=== PATIENT | male | born 1935 | race Caucasian/White ===

== ENCOUNTER 2016-11-15 03:46 | Inpatient (IN) | payer MEDICARE, OTHER ==
[2016-11-15] MEDS ORDERED: Adacel Vial IM ONE ×2 (03:53→04:37)
[2016-11-15] MEDS ORDERED: BACIGUENT PACKET TP ONE (03:53)
[2016-11-15] MEDS ORDERED: XYLOCAINE 2% Uro-Jet ONE (04:09)
[2016-11-15 04:20] LABS: BASOPHIL % 0.4 % (0.0-0.4); Eosinophil % 2.7 % (0.00-5.0); Granulocytes % 62.3 % (36.0-66.0); Lymphocytes % 27.4 % (24.0-44.0); Mean Cell Volume 92.2 fl (78-100); Mean Corpuscular Hemoglobin 29.7 pg (26-32); Mean Platelet Volume 12.2 fl (6-9.5); Monocytes % 7.2 % (0.0-12.0); Platelet Count 182 K/mm3 (150-450); Red Blood Count 4.35 M/mm3 (4.1-5.6); Red Cell Distribution Width 13.8 % (11.5-14.0); White Blood Count 10.6 K/mm3 (4.0-10.5)
[2016-11-15] MEDS: Sodium Chloride 0.9% 1000 ML 1,000 ML IV SCH ×2 (04:25→15:24)
[2016-11-15] MEDS ORDERED: XYLOCAINE 2% Uro-Jet TOP ONE (04:26)
[2016-11-15 04:30] LABS: INR 1.13 (0.8-3.0); PROTIME 12.6 SECONDS (8.83-12.87)
[2016-11-15] MEDS ORDERED: SUBLIMAZE 100 MCG/2 ML IV ONE ×2 (04:31→05:20)
[2016-11-15 04:33] LABS: PTT 30.7 SECONDS (24.1-36.1)
[2016-11-15 04:36] LABS: Collection Type CATH
[2016-11-15] MEDS ORDERED: SUBLIMAZE 100 MCG/2 ML ONE ×2 (04:36→05:22)
[2016-11-15 04:37] LABS: COMPLETE URINE MICROSCOPIC? NO
--- NOTE | 2016-11-15 04:37 | ERPHSYRPT ---
- History of Present Illness Time Seen by Provider: 11/15/16 03:51 Source: patient, family, EMS Patient Subjective Stated Complaint: alert per neighbor that pt was sleep- walking outside for unknown amount of time - pt lacking adequate clothing - recent history of stroke with pacemaker placement as well - pt with fall et multiple abrasions of the extremities Triage Nursing Assessment: lifted to cart per EMS personnel - moves all extremities with equal strength. alert/oriented to self and place - pupils MARY : 4mm. skin flushed/cold - multiple abrasions of the extremities with dried, embedded grass. resps spontaneous - easy - non-labored Physician History: CC: cold exposed Hx: 81 y/o patient of Dr Loyola with hx of DM, heart disease, pacemaker last week. He has hx of polysomnias and has been following with neurology. They have door alarms as he has gone outside sleepwalking. Rhoda the neighbor found him banging on their door. He had walked outside and gone several houses down. He initially was on a walker but it was abandoned part of the way. He was in a t shirt and depends garment. He was cold. He has scratches all over him. EMS was called. Glc was not low. He was placed in warm blankets and brought to the hospital. Pt did not remember the events but arrived lucid. He complains of cold feet and some pain in the feet. Unsure last tetanus vaccine. Timing/Duration: today Severity: moderate, severe Allergies/Adverse Reactions: morphine Allergy (Verified 06/11/16 12:42) Home Medications: Acetaminophen 325 mg [Tylenol 325 mg] 650 mg PO Q8HPRN PRN 11/15/16 [ History] Amlodipine Besylate 5 mg [Norvasc 5 mg] 5 mg PO DAILY 11/15/16 [History] Apixaban [Eliquis] 5 mg PO HS 11/15/16 [History] Aspirin 81 mg PO DAILY 11/15/16 [History] Cholecalciferol (Vitamin D3) [Vitamin D3] 2,000 unit PO DAILY 11/15/16 [History] Clonazepam 0.5 mg [Klonopin 0.5 MG] 0.5 mg PO HS 11/15/16 [History] Fenofibrate Nanocrystallized [Fenofibrate] 145 mg PO DAILY 11/15/16 [History] Furosemide 40 mg [Lasix 40 MG] 40 mg PO DAILY 11/15/16 [History] Gabapentin 300 mg PO HS 11/15/16 [History] Glimepiride 1 mg PO DAILY 11/15/16 [History] Meclizine HCl 25 mg [Antivert 25 mg] 25 mg PO BID 11/15/16 [History] Memantine HCl [Namenda Xr] 28 mg PO HS 11/15/16 [History] Metoprolol Tartrate 50 mg PO DAILY 11/15/16 [History] Olmesartan Medoxomil [Benicar] 40 mg PO DAILY 11/15/16 [History] Rosuvastatin Calcium [Crestor] 20 mg PO DAILY 11/15/16 [History] Sitagliptin Phosphate 50 MG [Januvia 50 MG] 50 mg PO DAILY 11/15/16 [ History] Hx Tetanus, Diphtheria Vaccination/Date Given: No Hx Influenza Vaccination/Date Given: No Hx Pneumococcal Vaccination/Date Given: No Immunizations Up to Date: Yes - Review of Systems Constitutional: No Symptoms Eyes: No Symptoms Respiratory: No Cough, No Dyspnea Cardiac: No Chest Pain Abdominal/Gastrointestinal: No Abdominal Pain, No Nausea, No Vomiting Genitourinary Symptoms: No Symptoms Musculoskeletal: Fall (?), Injury (scratches and frsotbite]), No Back Pain, No Neck Pain Skin: Skin Lesions Neurological: No Focal Weakness, No Headache All Other Systems: Reviewed and Negative - Past Medical History Pertinent Past Medical History: Yes Neurological History: Peripheral Neuropathy, Stroke ENT History: Cataracts Cardiac History: Coronary Artery Disease, Hypertension, Myocardial Infarction ( [place]) Respiratory History: COPD Endocrine Medical History: Diabetes Type II Musculoskeletal History: Osteoarthritis GI Medical History: Hernia History: No Pertinent History Psycho-Social History: No Pertinent History Male Reproductive Disorders: Prostate Cancer Other Medical History: BLACK LUNG USES O2 AT NIGHT VIA CPAP; SLEEP APNEA; CABG X 3 2004; PROSTATE CA 1999; CHOLECYSTECTOMY; Stroke; Polysomnia - Past Surgical History Past Surgical History: Yes Neuro Surgical History: No Pertinent History Cardiac: CABG, Cardiac Catheterization, Cardiac Stent, Pacemaker Respiratory: No Pertinent History Gastrointestinal: Cholecystectomy Genitourinary: No Pertinent History Musculoskeletal: Joint Replacement Male Surgical History: No Pertinent History - Social History How long have you smoked: 41 Exposure to second hand smoke: No Drug Use: none Patient Lives Alone: No (lives at home with ) - Nursing Vital Signs Nursing Vital Signs: Initial Vital Signs Temperature 97.4 F Temperature Source Core Pulse Rate 78 Respiratory Rate 12 Blood Pressure 113/69 Pain Intensity 7 - Physical Exam General Appearance: alert Eye Exam: PERRL/EOMI Ears, Nose, Throat Exam: moist mucous membranes Neck Exam: non-tender, supple Respiratory Exam: lungs clear Cardiovascular Exam: irregular Gastrointestinal/Abdomen Exam: soft, No tenderness, No distention Male Genitalia Exam: normal genitalia Extremity Exam: normal range of motion, other (abrasions on all extremities. Both feet are cold and have dusky discoloration and appear to have frostbite.) Neurologic Exam: alert, oriented x 3, cooperative, No motor deficits SpO2 Interpretation: normal SpO2: 97 Oxygen Delivery: Room Air - Course Nursing assessment & vital signs reviewed: Yes EKG Interpreted by Me: RATE (61 pacemaker with underlying atrial flutter) - Radiology Exams cxr X-ray Interpretation: Reviewed by me (aging chest), No Fracture, No Pneumothorax , Non-displaced Fracture pelvis X-ray Interpretation: Reviewed by me, Negative, No Fracture Ordered Tests: Active Orders 24 hr Category Date Time Status ACCUCHECK [Accucheck] STAT Care 11/15/16 05:07 Completed Cath [Catheter-Tracy Rollins] STAT Care 11/15/16 04:23 Active Clean Catch Urine Specimen STAT Care 11/15/16 03:51 Active EKG-ER Only STAT Care 11/15/16 03:51 Active IV Insertion STAT Care 11/15/16 03:51 Active Wound Care STAT Care 11/15/16 03:53 Active CHEST 1 VIEW (PORTABLE) Stat Exams 11/15/16 03:52 Taken KNEE (1 OR 2 VIEW) Stat Exams 11/15/16 05:56 Ordered PELVIS (1 OR 2 VIEWS) Stat Exams 11/15/16 03:54 Taken CBC W DIFF Stat Lab 11/15/16 04:05 Completed CK-Creatinine Phosphokinase Stat Lab 11/15/16 04:05 Completed CMP Stat Lab 11/15/16 04:05 Completed Lactic Acid Urgent Lab 11/15/16 03:51 Completed PROTIME WITH INR Stat Lab 11/15/16 04:05 Completed PTT Stat Lab 11/15/16 04:05 Completed TROPONIN Q3H Lab 11/15/16 04:05 Completed TROPONIN Q3H Lab 11/15/16 07:00 Ordered TROPONIN Q3H Lab 11/15/16 10:00 Ordered TROPONIN Q3H Lab 11/15/16 13:00 Ordered TROPONIN Q3H Lab 11/15/16 16:00 Ordered UA Stat Lab 11/15/16 04:25 Completed Medication Summary Generic Name Dose Route Start Last Admin Trade Name Freq PRN Reason Stop Dose Admin Sodium Chloride 1,000 mls @ 100 mls/hr 11/15/16 04:00 11/15/16 04:25 Sodium Chloride 0.9% 1000 Ml IV 12/15/16 03:59 100 mls/hr .Q10H HILARY Administration Discontinued Medications Generic Name Dose Route Start Last Admin Trade Name Freq PRN Reason Stop Dose Admin Bacitracin 0.9 gm 11/15/16 03:53 Baciguent Packet TP 11/15/16 03:54 STAT ONE Bacitracin Confirm 11/15/16 05:37 Baciguent Packet Administered 11/15/16 05:38 Dose 7 gm .ROUTE .STK-MED ONE Diphtheria/Tetanus/Acell Pertussis 0.5 ml 11/15/16 03:53 11/15/16 04:40 Adacel Vial IM 11/15/16 03:54 0.5 ml .ONCE ONE Administration Diphtheria/Tetanus/Acell Pertussis Confirm 11/15/16 04:37 Adacel Vial Administered 11/15/16 04:38 Dose 0.5 ml IM .STK-MED ONE Fentanyl Citrate 25 mcg 11/15/16 04:31 11/15/16 04:39 Sublimaze 100 Mcg/2 Ml IV 11/15/16 04:32 25 mcg STAT ONE Administration Fentanyl Citrate Confirm 11/15/16 04:36 Sublimaze 100 Mcg/2 Ml Administered 11/15/16 04:37 Dose 100 mcg .ROUTE .STK-MED ONE Fentanyl Citrate 50 mcg 11/15/16 05:20 11/15/16 05:27 Sublimaze 100 Mcg/2 Ml IV 11/15/16 05:21 50 mcg STAT ONE Administration Fentanyl Citrate Confirm 11/15/16 05:22 Sublimaze 100 Mcg/2 Ml Administered 11/15/16 05:23 Dose 100 mcg .ROUTE .STK-MED ONE Lidocaine HCl Confirm 11/15/16 04:09 Xylocaine 2% Uro-Jet Administered 11/15/16 04:10 Dose 200 mg .ROUTE .STK-MED ONE Lidocaine HCl 200 mg 11/15/16 04:26 11/15/16 04:28 Xylocaine 2% Uro-Jet TOP 11/15/16 04:27 200 mg STAT ONE Administration Lab/Rad Data: Laboratory Result Diagrams 11/15/16 04:05 11/15/16 04:05 Laboratory Results 11/15/16 11/15/16 11/15/16 Range/Units 04:25 04:05 04:05 WBC (4.0-10.5) K/mm3 RBC (4.1-5.6) M/mm3 Hgb (12.5-18.0) gm/dl Hct (42-50) % MCV (78-100) fl MCH (26-32) pg MCHC (32-36) g/dl RDW (11.5-14.0) % Plt Count (150-450) K/mm3 MPV (6-9.5) fl Gran % (36.0-66.0) % Lymphocytes % (24.0-44.0) % Monocytes % (0.0-12.0) % Eosinophils % (0.00-5.0) % Basophils % (0.0-0.4) % Basophils # (0-0.4) INR 1.13 (0.8-3.0) PTT 30.7 (24.1-36.1) SECONDS Sodium (136-145) mEq/L Potassium (3.5-5.1) mEq/L Chloride (98-107) mEq/L Carbon Dioxide (21-32) mEq/L Anion Gap (5-15) MEQ/L BUN (9-20) mg/dL Creatinine (0.55-1.30) mg/dl Estimated GFR ML/MIN Glucose (70-110) MG/DL Lactic Acid (0.4-2.0) Calcium (8.5-10.1) mg/dL Total Bilirubin (0.2-1.0) mg/dL AST (15-37) U/L ALT (12-78) U/L Alkaline Phosphatase (46-116) U/L Creatine Kinase (39-308) U/L Troponin I < 0.017 (0.000-0.056) ng/ml Serum Total Protein (6.4-8.2) gm/dL Albumin (3.4-5.0) g/dL Ur Collection Type CATH Urine Color YELLOW (YELLOW) Urine Appearance CLEAR (CLEAR) Urine pH 6.0 (5-6) Ur Specific [place] 1.015 (1.005-1.025) Urine Protein NEGATIVE (Negative) Urine Glucose (UA) >=1000 (NEGATIVE) mg/dL Urine Ketones NEGATIVE (NEGATIVE) Urine Nitrite NEGATIVE (NEGATIVE) Urine Bilirubin NEGATIVE (NEGATIVE) Urine Urobilinogen 0.2 (0-1) mg/dL Urine WBC (Auto) NEGATIVE (NEGATIVE) Urine RBC (Auto) NEGATIVE (0-5) Andres/ul Specimen Received 11/15/16:0430 11/15/16 11/15/16 11/15/16 Range/Units 04:05 04:05 03:51 WBC 10.6 H (4.0-10.5) K/mm3 RBC 4.35 (4.1-5.6) M/mm3 Hgb 12.9 (12.5-18.0) gm/dl Hct 40.1 L (42-50) % MCV 92.2 (78-100) fl MCH 29.7 (26-32) pg MCHC 32.2 (32-36) g/dl RDW 13.8 (11.5-14.0) % Plt Count 182 (150-450) K/mm3 MPV 12.2 H (6-9.5) fl Gran % 62.3 (36.0-66.0) % Lymphocytes % 27.4 (24.0-44.0) % Monocytes % 7.2 (0.0-12.0) % Eosinophils % 2.7 (0.00-5.0) % Basophils % 0.4 (0.0-0.4) % Basophils # 0.04 (0-0.4) INR (0.8-3.0) PTT (24.1-36.1) SECONDS Sodium 141 (136-145) mEq/L Potassium 4.4 (3.5-5.1) mEq/L Chloride 106 (98-107) mEq/L Carbon Dioxide 25.5 (21-32) mEq/L Anion Gap 13.9 (5-15) MEQ/L BUN 27 H (9-20) mg/dL Creatinine 1.76 H (0.55-1.30) mg/dl Estimated GFR 40 ML/MIN Glucose 196 H (70-110) MG/DL Lactic Acid 2.3 H (0.4-2.0) Calcium 8.9 (8.5-10.1) mg/dL Total Bilirubin 0.4 (0.2-1.0) mg/dL AST 43 H (15-37) U/L ALT 36 (12-78) U/L Alkaline Phosphatase 54 (46-116) U/L Creatine Kinase 150 (39-308) U/L Troponin I (0.000-0.056) ng/ml Serum Total Protein 7.4 (6.4-8.2) gm/dL Albumin 3.8 (3.4-5.0) g/dL Ur Collection Type Urine Color (YELLOW) Urine Appearance (CLEAR) Urine pH (5-6) Ur Specific [place] (1.005-1.025) Urine Protein (Negative) Urine Glucose (UA) (NEGATIVE) mg/dL Urine Ketones (NEGATIVE) Urine Nitrite (NEGATIVE) Urine Bilirubin (NEGATIVE) Urine Urobilinogen (0-1) mg/dL Urine WBC (Auto) (NEGATIVE) Urine RBC (Auto) (0-5) Andres/ul Specimen Received - Progress Progress Note: 11/15/16 04:41 The patient was exposed and placed on warm blankets and bear hugger. Rectal temp 95.4 initially. Pulse ox 95% RA. He is alert and lucid. He appears to have superficial abrasions and frostbite of the feet. Warmed IVF initiated. Tetanus updated. Family apprised of condition. He will need admission for rewarming and treatment of frostbite. Discussed with : Daily Gee Will see patient in: hospital (observation) Counseled pt/family regarding: lab results, diagnosis, need for follow-up, rad results - Departure Time of Disposition: 06:06 Departure Disposition: Observation Clinical Impression: Frostbite of both feet, Abrasions of multiple sites, Parasomnia, organic Hypothermia, initial encounter Qualifiers: Encounter type: initial encounter Qualified Code(s): T68.XXXA - Hypothermia, initial encounter Exposure to environmental cold Qualifiers: Encounter type: initial encounter Qualified Code(s): T69.9XXA - Effect of reduced temperature, unspecified, initial encounter Type 2 diabetes mellitus Qualifiers: Diabetes mellitus complication status: with circulatory complication Diabetes mellitus complication detail: with other circulatory complications Condition: Fair Critical Care Time: Yes Critical Care Time(excluding separately billable procedures): 30-74 minutes Referrals: CATRACHO LOYOLA MD [Primary Care Provider] -
[2016-11-15 04:39] LABS: ALBUMIN 3.8 g/dL (3.4-5.0); ANION GAP 13.9 MEQ/L (5-15); BILIRUBIN,TOTAL 0.4 mg/dL (0.2-1.0); Carbon Dioxide 25.5 mEq/L (21-32); Potassium 4.4 mEq/L (3.5-5.1); Total Protein 7.4 gm/dL (6.4-8.2)
[2016-11-15] MEDS ORDERED: BACIGUENT PACKET ONE (05:37)
[2016-11-15] MEDS ORDERED: TYLENOL 325 MG PO PRN ×2 (06:45→12:16)
[2016-11-15] MEDS: Pepcid 20 MG VIAL IV SCH ×2 (09:11→21:22)
--- NOTE | 2016-11-15 09:44 | XRAY ---
Indication: Pain following fall. Comparison: October 26, 2016 AP pelvis obtained using portable technique and limited due to suboptimal technique. Stable bilateral superior acetabular spurring with new Rollins catheter. No acute fracture, dislocation, or suspicious bone lesions.
--- NOTE | 2016-11-15 09:48 | XRAY ---
Indication: Fall. Hypothermia. Comparison: May 26, 2014 Portable apical lordotic chest underinflated again with extensive bilateral calcified pleural plaquing, previous CABG surgery, and left-sided dual-lead pacemaker. No focal infiltrate, consolidation, or large effusion. Heart is prominent but felt to be due to underinflation. Bony thorax intact again with osteopenia and degenerative changes. Impression: Nonacute underinflated chest with chronic features.
--- NOTE | 2016-11-15 09:48 | XRAY ---
Indication: Fall. Comparison: None 2 views of the right knee demonstrates previous total knee arthroplasty with intact prosthesis/articulation, tibial tubercle spurring, and scattered vascular calcifications. No other bony, articular, or soft tissue abnormalities.
[2016-11-15] MEDS: ZOCOR 20MG PO SCH (12:51)
[2016-11-15] MEDS: Benicar 20 MG PO SCH (12:51)
[2016-11-15] MEDS: Namenda 5 MG PO SCH ×2 (12:51→21:22)
[2016-11-15] MEDS: VITAMIN D PO SCH (12:52)
[2016-11-15] MEDS: NORVASC 5 MG PO SCH (12:52)
[2016-11-15] MEDS: ANTIVERT 25 MG PO SCH ×2 (12:52→21:22)
[2016-11-15] MEDS: Lopressor 50 MG PO SCH (12:52)
[2016-11-15] MEDS: Lasix 40 MG PO SCH (12:52)
[2016-11-15] MEDS: Tricor 145 MG PO SCH (12:52)
[2016-11-15] MEDS: ECOTRIN 81 MG PO SCH (12:52)
[2016-11-15] MEDS: NovoLOG Insulin SQ PRN (17:18)
[2016-11-15 17:45] LABS: A-aADO2 24; ARTERIAL BLD GAS O2 SATURATION 97.5 % (95-100); ARTERIAL BLOOD GAS BASE EXCESS -1.2 (-2.0-2.0); ARTERIAL BLOOD GAS FIO2 21 %; ARTERIAL BLOOD GAS PO2 77 mmHg (75-100); ARTERIAL BLOOD GAS pH 7.39 (7.35-7.45)
[2016-11-15] MEDS: SUBLIMAZE 100 MCG/2 ML IV PRN ×2 (17:57→22:47)
[2016-11-15] MEDS ORDERED: ROCEPHIN 1 Gm-D5w 50 ml Bag** 50 ML IV SCH (18:15)
[2016-11-15] MEDS: NEURONTIN 300 MG PO SCH (21:23)
[2016-11-15] MEDS: Klonopin 0.5 MG PO SCH (21:23)
[2016-11-15] MEDS ORDERED: NORCO 5/325 MG PO PRN (21:30)
[2016-11-15] MEDS ORDERED: KEFLEX 500 MG PO SCH (22:00)
[2016-11-15] MEDS ORDERED: MEMANTINE HCL 28 MG PO SCH (22:00)
[2016-11-15] MEDS: Ativan 2 MG/1 ML VIAL IV PRN (22:05)
[2016-11-15] MEDS ORDERED: Haldol 5 MG IM ONE (23:39)
[2016-11-16] MEDS: Ativan 2 MG/1 ML VIAL IV PRN ×2 (08:11→17:57)
[2016-11-16] MEDS: Sodium Chloride 0.9% 1000 ML 1,000 ML IV SCH (08:17)
--- NOTE | 2016-11-16 08:32 | XRAY ---
Indication: Head injury and pain following fall. Multiple contiguous axial images obtained through the head without contrast. Comparison: May 01, 2016 Stable age-appropriate global atrophy and minimal periventricular degenerative micro-ischemia. No acute intracranial hemorrhage, abnormal extra-axial fluid collection, or mass effect. Fourth ventricle is midline without hydrocephalus. Bony calvarium intact. Visualized paranasal sinuses and mastoid air cells are clear. Impression: Stable nonacute senile brain. CT DI is 50.87
--- NOTE | 2016-11-16 08:39 | XRAY ---
Indication: Status post fall. Multiple contiguous axial images obtained through the facial bones. Sagittal and coronal reformatted images obtained. Comparison: December 07, 2013 Patient again edentulous. Old minimally depressed fractures seen of the floor and medial wall of the right orbit. Also tiny nonunited fracture involving the tip of the maxillary spine. No acute fracture, suspicious bony lesions, or radiopaque foreign body. Stable degenerative changes of the visualized cervical spine. Minimal mucosal thickening of both ethmoid sinuses without fluid level and. Remaining paranasal sinuses are pneumatized and clear. Again mild nasal septal deviation to the right. Visualized noncontrasted soft tissues including orbits and base of the brain unremarkable. 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 No acute fracture. CT DI is 59.47
[2016-11-16] MEDS ORDERED: NON-FORMULARY ITEM (Rosuvastatin Calcium [Crestor] 20 MG) PO SCH (10:00)
[2016-11-16] MEDS ORDERED: NON-FORMULARY ITEM (Cholecalciferol (Vitamin D3) [Vitamin D3] 2,000 UNIT) PO SCH (10:00)
[2016-11-16] MEDS ORDERED: NON-FORMULARY ITEM (Aspirin [Aspirin] 81 MG) PO SCH (10:00)
[2016-11-16] MEDS ORDERED: OLMESARTAN MEDOXOMIL 40 MG PO SCH (10:00)
[2016-11-16] MEDS: ZOCOR 20MG PO SCH (10:55)
[2016-11-16] MEDS: Lopressor 50 MG PO SCH (10:56)
[2016-11-16] MEDS: VITAMIN D PO SCH (10:56)
[2016-11-16] MEDS: Benicar 20 MG PO SCH (10:56)
[2016-11-16] MEDS: Tricor 145 MG PO SCH (10:56)
[2016-11-16] MEDS: ECOTRIN 81 MG PO SCH (10:57)
[2016-11-16] MEDS: Pepcid 20 MG VIAL IV SCH ×2 (10:57→21:37)
[2016-11-16] MEDS: NORVASC 5 MG PO SCH (10:57)
[2016-11-16] MEDS: Namenda 5 MG PO SCH ×2 (10:57→21:37)
[2016-11-16] MEDS: Lasix 40 MG PO SCH (10:58)
[2016-11-16] MEDS: ANTIVERT 25 MG PO SCH ×2 (10:58→21:40)
[2016-11-16 12:15] LABS: Mean Cell Volume 91.6 fl (78-100); Mean Platelet Volume 11.6 fl (6-9.5); Platelet Count 132 K/mm3 (150-450); Red Blood Count 4.07 M/mm3 (4.1-5.6); White Blood Count 7.9 K/mm3 (4.0-10.5)
[2016-11-16 12:17] LABS: Mean Corpuscular Hemoglobin 29.9 pg (26-32)
--- NOTE | 2016-11-16 12:28 | HP ---
HISTORY OF PRESENT ILLNESS: History has been gathered from review of patient's chart and discussion with patient and his . Vernon Lu is an 81 year old male with past medical history of hypertension, coronary artery disease, congestive heart failure, diabetes mellitus, osteoarthritis, chronic obstructive pulmonary disease, and parasomnia (sleep walking). Last night around 0230 hours as per patient's the patient left from home and was outside for unknown amount of time. The patient was lacking adequate clothing. He was initially using a walker but apparently only part of the way. He was wearing a t-shirt and different garments. He was cold. He walked over to neighbors knocking on the door and eventually a neighbor found him walking banging on their door. EMS was called. The patient was placed in a warm blanket and brought to the emergency room. He did not have good recollection of events but on arrival in the emergency room he was noted to have flushed/cold skin with multiple abrasions on extremities with embedded grass. He had also complained of cold feet and some pain in his feet and was noted to have skin discoloration of feet. The patient has history of hypoxemia and sleep apnea and uses CPAP at night. Initial vitals in the emergency room were blood pressure 130/57, heart rate 60, respiratory rate 24, rectal temperature of 95.4F, core temperature of 95.9F. After initial lab work up he was treated with normal saline 1,000 ml, bacitracin, tetanus vaccine, Fentanyl 25 mcg IV x1, Fentanyl 100 mcg IV x1, Fentanyl 50 mcg IV x1, lidocaine 2%. He was treated with warm blankets, bear hugger. Eventually he was admitted to the medical floor for further monitoring and management. His course since admission has been essentially unremarkable. At the time of this evaluation he is alert, awake, comfortable. He complains of some pain in his feet. He also complains of pain in both knees, left hip. As per patient's and the patient, he fell three times during his walk yesterday. During his last fall he hurt left side of this head and skinned his left ear also. Denies increased shortness of breath. Denied chest pain. PAST MEDICAL HISTORY: As noted above. The patient has prior history of CVA. PAST SURGICAL HISTORY: Pacemaker placement last week. Status post coronary artery bypass graft x3 in 1999. Cholecystectomy. Status post cardiac catheterization and stent placement. ALLERGIES: MORPHINE. MEDICATIONS: Current medications were reviewed. FAMILY HISTORY: Noncontributory. SOCIAL HISTORY: The patient lives a home, is a former smoker, exposure to secondhand smoke or illicit drug use. REVIEW OF SYSTEMS: Denies headache or dizziness. Denies chest pain, shortness of breath or cough. Denies abdominal pain, nausea or vomiting. Denies constipation or diarrhea. Denies urinary complaints. Complains of pain on left ear. Pain in knees. Left hip pain. Pain in both feet. PHYSICAL EXAMINATION: An elderly man lying comfortably in bed, not in acute distress. VITAL SIGNS: Blood pressure 140/86, heart rate 89, respiratory rate 20, temperature 97.8F. Oxygen saturation 95% on room air. HEENT: Pallor is present. Superficial small abrasion and edema noted on left external ear. Mild local tenderness is present. NECK: No JVD is present. CVS: S1, S2 present. Anterior chest wall revealed healing wound of recent pacemaker placement left upper chest wall. The wound is well approximated, dry. No local tenderness is present. RESPIRATORY: Breath sounds are bilaterally diminished and clear to auscultation. ABDOMEN: Obese, soft, nontender. NEURO: He is alert, awake, answers simple questions, and follows simple commands. Evaluation of motor strength in bilateral upper and lower extremities reveals grossly intact motor strength. EXTREMITIES: No edema on bilateral lower extremities. Superficial abrasions are noted on anterior aspect of left shoulder, also anterior aspects of both knees (right worse than left). Mild local tenderness is present. Mild tenderness of left hip with painful range of motion of left hip is present and also abrasion is noted on tip of right third toe. Examination of feet revealed mild tenderness to touch bilaterally. Minimal discoloration on plantar aspect. Mild tenderness is present on both feet all over. Range of movement of toes is noted. BACK: Reveals no tenderness to percussion bilateral paraspinal area and upper back. Mild tenderness to percussion lower back lumbosacral area. LABORATORY DATA AND TESTS: Labs on admission were notable for CBC with white blood cell of 10.6, hemoglobin 12.9, hematocrit 14. International normalized ratio 1.13. BUN 27, creatinine 1.76. AST 43. Hemoglobin A1C 6.4. Troponin was less than 0.017 x2, 0.019 and again 0.017 x2. UA showed more than 1,000 glucose, 0-2 urobilinogen otherwise negative. Chest x-ray showed no acute underinflated chest with chronic features. Pelvic x-ray shows no acute fracture, dislocation, suspicious bony lesion. Knee x-ray showed right knee previous total arthroplasty with intact prosthesis articulation, tibia tubercle spurring, scattered calcifications, no bony, articular or soft tissue abnormalities. EKG showed paced rhythm with underlying atrial flutter. ASSESSMENT: An 81 year old male with impression: 1) Status post hypothermia, due to exposure to extreme cold. 2) Frostbite, feet. 3) Contusion of head, left shoulder, bilateral knees. 4) Abrasion, left external ear. 5) Renal insufficiency. 6) Parasomnia. 7) History of hypertension/congestive heart failure. 8) History of diabetes mellitus. 9) History of osteoarthritis. 10) History of chronic obstructive pulmonary disease. 11) Sleep apnea. PLAN: The patient is admitted for further monitoring and management. The hypothermia has since resolved. With regards to his above injury from fall last night, will obtain additional films including CT head, left knee x-ray, left hip x-ray, left shoulder x-ray. Continue covering both feet. Continue Bacitracin to abrasions. Will discuss with neurology regarding additional treatment of parasomnia. The patient is being followed by Dr. Hassan for the same. The patient's clinical condition, work up results and plan of management was discussed with him and his family. They seem to be in understanding and agreement.
[2016-11-16 12:42] LABS: MAGNESIUM 1.9 mg/dL (1.8-2.4)
[2016-11-16 12:43] LABS: TROPONIN < 0.017 ng/ml (0.000-0.056)
--- NOTE | 2016-11-16 16:06 | XRAY ---
Indication: Abrasion. Confusion. Comparison: None 2 AP views of the left shoulder demonstrates mild osteopenia, moderate/advanced degenerative changes, partially visualized pacemaker/leads, and left lung calcified pleural plaquing. No acute fracture, dislocation, or suspicious bone lesions.
--- NOTE | 2016-11-16 16:09 | XRAY ---
Indication: Abrasion. Confusion. Comparison: None 3 views of the left knee demonstrates mild osteopenia, previous total knee arthroplasty, heterotopic ossifications, vascular calcifications, and medial vascular clip. No acute fracture, dislocation, or suspicious bone lesions.
--- NOTE | 2016-11-16 16:16 | XRAY ---
Indication: Fall. Confusion. Multiple contiguous axial images obtained through the lumbar spine. Sagittal and coronal reformatted images obtained. Comparison: Lumbar radiograph of May 01, 2016 Axial images demonstrates moderate/advanced multilevel degenerative endplate spurring, bilateral degenerative facet hypertrophy greatest at the L4-L5 level, and broad-based disc bulges at the L2-L3 and L4-S1 levels. Also degenerative vacuum disks at the L2-L3 and L4-S1 levels with small right anterior epidural air at the L4 level from the degenerative vacuum disks. Spinal canal and bilateral foraminal stenosis at L4-L5 level due to combination of disc osteophyte complex and bilateral degenerative facet hypertrophy. L2-L3 Schmorl nodes. No acute fracture or suspicious bony lesions. Sagittal and coronal reformatted images demonstrates normal alignment with minimal L5-S1 disc space narrowing. No acute compression fracture or subluxation. Visualized noncontrasted soft tissues demonstrates moderate aortoiliac calcifications and bilateral main renal artery stent grafts. Impression: 1. Negative for acute fracture/subluxation. 2. Multilevel degenerative spondylosis similar in appearance to the previous study. Greatest extent at L4-L5 where there is spinal canal and bilateral foraminal stenosis. 3. Incidental L2-L3 Schmorl nodes. CTDI is 151.55
--- NOTE | 2016-11-16 16:22 | XRAY ---
Indication: Fall. Confusion. Multiple contiguous axial images obtained through the pelvis with special attention to the osseous structures. Sagittal and coronal reformatted images obtained. Additional independent coronal images obtained through the left and right hip. Comparison: None. CT lumbar spine reported separately. No acute fracture, dislocation, or suspicious bone lesions. Mild/moderate degenerative changes of both hips and mild degenerative changes of both SI joints. Visualized surrounding soft tissues unremarkable other than scattered vascular calcifications. Pelvic contents demonstrates a Rollins catheter in situ and sigmoid diverticulosis. Normal appendix. Tiny pelvic fluid of uncertain etiology. No walled off fluid collection or free air. Impression: 1. Negative for acute fracture/dislocation. 2. Degenerative changes of both hips and both SI joints. 3. Incidental sigmoid diverticulosis and indeterminate tiny pelvic fluid. CTDI is 34.55
[2016-11-16] MEDS: SUBLIMAZE 100 MCG/2 ML IV PRN ×3 (16:37→21:38)
[2016-11-16] MEDS: ROCEPHIN 1 Gm-D5w 50 ml Bag** 50 ML IV SCH (21:36)
[2016-11-16] MEDS: Klonopin 0.5 MG PO SCH (21:37)
[2016-11-16] MEDS: NEURONTIN 300 MG PO SCH (21:37)
[2016-11-17] MEDS: Sodium Chloride 0.9% 1000 ML 1,000 ML IV SCH ×2 (05:50→07:38)
--- NOTE | 2016-11-17 09:21 | CONS ---
CONSULT DATE: 11/16/2016 This patient is seen for Dr. Wilcox who is on-call for our group. HISTORY: Multiple medical problems. Apparently he had some parasomnia and was out walking in a t-shirt, shorts and no shoes out in the cold for quarter of a mile. He was brought in with question of fuentes bite. PAST MEDICAL HISTORY: He has history of diabetes, heart disease, pacemaker in the past. PAST SURGICAL HISTORY: Cholecystectomy. Pacemaker. Cardiac stents. Coronary artery bypass graft in the past. Joint replacement. MEDICATIONS: As noted per the admission assessment, gabapentin, clonazepam, Eliquis, Namenda, vitamin D3, low dose aspirin, Tylenol, Benicar, Fenofibrate, Metoprolol, Crestor, Furosemide, amlodipine, meclizine. ALLERGIES: MORPHINE. FAMILY HISTORY: Negative in regards to this problem. REVIEW OF SYSTEMS: Ten systems reviewed negative or noncontributory as noted above and per admission assessment and taken from chart as he is a poor historian. PHYSICAL EXAMINATION: GENERAL: A chronically ill 81 year-old gentleman. HEENT: Sclera nonicteric. NECK: No JVD. CHEST: Equal excursion, nonlabored breathing. CVS: Regular rate and rhythm. ABDOMEN: Soft, nondistended. EXTREMITIES: No edema. He has 3+ palpable pedal pulses bilaterally. He does have some blisters that were drained with slight redness on the soles of his feet. He does have a couple little dark and grayish area tip of the second toe on the right foot, a little splotchy on the great toe and splotchy omalley area on the other toes. No evidence of any hailey infection or gangrene that needs emergent surgical intervention at this point. NEURO: Alert, oriented, moving extremities grossly symmetrically. No gross motor deficits noted. IMPRESSION: Question frostbite injury. No need for emergent surgical intervention. Continue local care, medical management. Toes may be demarcated over time, might possibly need intervention at that point but at this time no surgical intervention is necessary. Continue medical management for now and Dr. Wilcox will re-evaluate later in the week.
--- NOTE | 2016-11-17 09:59 | PROG NOTE ---
DATE: 11/16/16 Chart reviewed. Events noted. I was contacted by nursing staff yesterday stating that patient was noted to have blisters on both of his feet. Patient was seen by physical therapy yesterday evening and underwent drainage of those blisters. During the night, patient did have increased agitation/confusion requiring treatment with Ativan/Haldol. At the time of this evaluation this afternoon, the patient was sleeping comfortably. He had just been evaluated by surgery. VITALS: BP 143/63, heart rate 61, respiratory rate 18, temperature 98.8, O2 saturations 97% on room air. HEENT: Pallor present. NECK: No JVD is present. CVS: S1 and S2 present. RESPIRATORY: Breath sounds bilaterally diminished and clear to auscultation. ABDOMEN: Soft. NEURO: Patient was sleeping. EXTREMITIES: Revealed no edema on bilateral lower extremities. Dressing was present on left foot (dressing was just done after surgery evaluated patient). Plantar aspect of right foot did show flattened out areas of skin from the ruptured blisters. LABORATORY DATA: Labs from today were noted. Facial bone CT from yesterday showed old fractures of right orbital medial wall and floor as well as chronic nonunited fracture of maxillary spine. No acute fracture. Head CT showed stable nonacute senile brain. Left knee x-ray showed no acute fracture, dislocation, or suspicious bone lesion. Left shoulder x-ray showed no acute fracture. Lumbar spine CT showed negative for acute fracture/subluxation, multilevel degenerative spondylosis similar in appearance to previous study. CT of pelvis was negative for acute fracture/dislocation. Medications were reviewed. ASSESSMENT: 81 y/o male with impression: 1. STATUS POST HYPOTHERMIA (NOW RESOLVED). 2. FROSTBITE (FEET). 3. CONTUSION OF HEAD, LEFT SHOULDER, AND BILATERAL KNEES. 4. CONFUSION. 5. ABRASION (LEFT EAR). 6. BLISTERS (FEET). 7. RENAL INSUFFICIENCY. 8. PARASOMNIA. 9. HYPERTENSION/CONGESTIVE HEART FAILURE. 10. DIABETES MELLITUS. 11. OSTEOARTHRITIS. 12. CHRONIC OBSTRUCTIVE PULMONARY DISEASE. 13. SLEEP APNEA. PLAN: 1. As noted earlier, patient was evaluated by physical therapy and underwent drainage of the blisters yesterday. He was evaluated by surgery and they have recommended conservative management of the same. Empiric antibiotics were added. Will continue those along with analgesics. Will continue dressing of area per surgery/physical therapy recommendation. 2. Will continue to monitor neurological status. Continue PRN Ativan/Haldol. 3. Also, patient was noted to have atrial fibrillation with rate in 80s this morning per patient's nurse. Initial plan was to obtain cardiology evaluation. However, patient did remain asymptomatic from that and as per family's request, cardiology evaluation was placed on hold at this time. Will continue to monitor closely. 4. Our office contacted Dr. Hassan's office. However, Dr. Hassan was out of office today and will reattempt to contact them again in AM regarding any additional treatment for his parasomnia. Patient's clinical condition, work-up results, and plan of management were discussed with patient's [id number], Ana, at length. She seems to be in understanding and agreement. She declined having any questions/concerns that remain unanswered at the conclusion of today's visit.
[2016-11-17] MEDS: ZOCOR 20MG PO SCH (10:06)
[2016-11-17] MEDS: ANTIVERT 25 MG PO SCH ×2 (10:06→20:37)
[2016-11-17] MEDS: Benicar 20 MG PO SCH (10:06)
[2016-11-17] MEDS: Namenda 5 MG PO SCH ×2 (10:07→20:37)
[2016-11-17] MEDS: SYNTHROID 25 MCG PO SCH (10:08)
[2016-11-17] MEDS: ECOTRIN 81 MG PO SCH (10:08)
[2016-11-17] MEDS: NORVASC 5 MG PO SCH (10:08)
[2016-11-17] MEDS: VITAMIN D PO SCH (10:09)
[2016-11-17] MEDS: Tricor 145 MG PO SCH (10:09)
[2016-11-17] MEDS: Lopressor 50 MG PO SCH (10:10)
[2016-11-17] MEDS: Lasix 40 MG PO SCH ×2 (10:10→16:01)
[2016-11-17] MEDS: Pepcid 20 MG VIAL IV SCH ×2 (10:11→21:58)
[2016-11-17 10:52] LABS: ANION GAP 5.6 MEQ/L (5-15); Carbon Dioxide 27.7 mEq/L (21-32); Potassium 3.6 mEq/L (3.5-5.1)
--- NOTE | 2016-11-17 14:58 | PROG NOTE ---
DATE: 11/17/2016 Chart is reviewed and events noted. The patient reportedly was confused last night and did not sleep well. At the time of this evaluation he is drowsy but easily arousable, complains of pain in his feet. He states no other problems right now, appears comfortable. PHYSICAL EXAMINATION: VITAL SIGNS: Blood pressure 133/64, heart rate 62, respiratory rate 16, temperature 98.3F. Oxygen saturation 95% on room air. HEENT: No pallor or icterus is noted. NECK: No JVD is present. CVS: S1, S2 present. RESPIRATORY: Breath sounds are bilaterally diminished and clear to auscultation. ABDOMEN: Soft, nontender. NEURO: He is drowsy but easily arousable, appears slightly confused but answers simple questions. EXTREMITIES: No edema on bilateral lower extremities. Dressings are present on both feet. LABORATORY DATA AND TESTS: Labs from today showed BMP with BUN 19, creatinine 1.53, glucose 175. Yesterday's labs are noted. Medications were reviewed. ASSESSMENT: An 81 year old male with impression: 1) Status post frostbite (feet). 2) Contusion of head, left shoulder, and knee. 3) Confusion. 4) Renal insufficiency. 5) Parasomnia. 6) Hypertension/congestive heart failure. 7) Generalized weakness. 8) Diabetes mellitus type 2. PLAN: Continue antibiotic, local wound care per surgery/PT recommendation. Continue to monitor neurologic status. Likely placement in a penitentiary. Discussed with employment evaluator/case manager, Melba.
[2016-11-17] MEDS: Ativan 2 MG/1 ML VIAL IV PRN (17:54)
[2016-11-17] MEDS: Klonopin 0.5 MG PO SCH (20:37)
[2016-11-17] MEDS: NEURONTIN 300 MG PO SCH (20:38)
[2016-11-17] MEDS: Seroquel 25 MG PO SCH (20:38)
[2016-11-17] MEDS: ROCEPHIN 1 Gm-D5w 50 ml Bag** 50 ML IV SCH (21:58)
[2016-11-18] MEDS: Ativan 2 MG/1 ML VIAL IV PRN ×2 (03:25→16:56)
[2016-11-18] MEDS: Lopressor 50 MG PO SCH (09:06)
[2016-11-18] MEDS: VITAMIN D PO SCH (09:06)
[2016-11-18] MEDS: ZOCOR 20MG PO SCH (09:06)
[2016-11-18] MEDS: Benicar 20 MG PO SCH (09:06)
[2016-11-18] MEDS: ANTIVERT 25 MG PO SCH ×2 (09:07→19:53)
[2016-11-18] MEDS: Tricor 145 MG PO SCH (09:07)
[2016-11-18] MEDS: Namenda 5 MG PO SCH ×2 (09:07→19:53)
[2016-11-18] MEDS: SYNTHROID 25 MCG PO SCH (09:07)
[2016-11-18] MEDS: Pepcid 20 MG VIAL IV SCH ×2 (09:07→22:40)
[2016-11-18] MEDS: Lasix 40 MG PO SCH ×2 (09:07→16:58)
[2016-11-18] MEDS: ECOTRIN 81 MG PO SCH (09:07)
[2016-11-18] MEDS: NORVASC 5 MG PO SCH (09:07)
[2016-11-18] MEDS: NovoLOG Insulin SQ PRN ×2 (12:09→17:14)
--- NOTE | 2016-11-18 13:27 | PROG NOTE ---
DATE: 11/18/2016 Chart is reviewed and events noted. The patient was on Seroquel per his neurologist last night. At the time of this evaluation the patient is alert and denies new complaints, appears comfortable. PHYSICAL EXAMINATION: VITAL SIGNS: Blood pressure 147/88, heart rate 104, respiratory rate 20, temperature 98.8F. Oxygen saturation 95%. HEENT: No pallor or icterus is noted. NECK: No JVD is present. CVS: S1, S2 present. RESPIRATORY: Breath sounds are bilaterally diminished and clear to auscultation. ABDOMEN: Soft, nontender. NEURO: He is alert, awake, answers simple questions. EXTREMITIES: No edema on bilateral lower extremities. Dressings present on bilateral feet. LABORATORY DATA AND TESTS: No new labs today. Medications were reviewed. ASSESSMENT: An 81 year old male with impression: 1) Status post fuentes bite (feet). 2) Contusion of head, left shoulder and knee. 3) Confusion. 4) Renal insufficiency. 5) Parasomnia. 6) Hypertension. 7) Congestive heart failure. 8) Diabetes mellitus type 2. PLAN: Continue broad spectrum IV antibiotic, wound care. After my discussion with physical therapy the patient was noted have tearing of his blisters on right foot yesterday. He is requiring daily dressing, will continue that per physical therapy recommendations. I will add additional antibiotics. With regards to the patient's polysomia and confusion, after discussion with the patient neurologist, Dr. Hassan, Seroquel was added. Will continue that along with Klonopin. Continue to follow CBC and electrolytes. Will obtain follow up labs. Likely discharge to alf in the next one to two days. The patient's clinical condition, work-up results and plan of management were discussed with him. He seems to be in understanding and agreement.
[2016-11-18] MEDS ORDERED: TYLENOL 325 MG PO PRN (16:28)
[2016-11-18] MEDS ORDERED: PHARMACY DOSING REQUEST MC ONE (16:52)
[2016-11-18] MEDS ORDERED: Levaquin 500MG/100ML D5W 100 ML IV SCH (17:00)
[2016-11-18 17:52] LABS: Mean Cell Volume 91.7 fl (78-100); Mean Corpuscular Hemoglobin 30.2 pg (26-32); Mean Platelet Volume 12.1 fl (6-9.5); Platelet Count 166 K/mm3 (150-450); Red Cell Distribution Width 13.9 % (11.5-14.0)
[2016-11-18] MEDS: SUBLIMAZE 100 MCG/2 ML IV PRN (19:49)
[2016-11-18] MEDS: NEURONTIN 300 MG PO SCH (19:53)
[2016-11-18] MEDS: Klonopin 0.5 MG PO SCH (19:53)
[2016-11-18] MEDS: Seroquel 25 MG PO SCH (19:53)
[2016-11-18] MEDS: ROCEPHIN 1 Gm-D5w 50 ml Bag** 50 ML IV SCH (22:39)
[2016-11-19 07:34] LABS: Collection Type CATH
[2016-11-19 07:35] LABS: COMPLETE URINE MICROSCOPIC? YES
[2016-11-19 08:22] LABS: Bacteria MODERATE /HPF (NEGATIVE); Epithelial Cells FEW /HPF (FEW)
[2016-11-19] MEDS: Benicar 20 MG PO SCH (09:24)
[2016-11-19] MEDS: Tricor 145 MG PO SCH (09:24)
[2016-11-19] MEDS: SYNTHROID 25 MCG PO SCH (09:24)
[2016-11-19] MEDS: ZOCOR 20MG PO SCH (09:25)
[2016-11-19] MEDS: ECOTRIN 81 MG PO SCH (09:25)
[2016-11-19] MEDS: Lopressor 50 MG PO SCH (09:25)
[2016-11-19] MEDS: VITAMIN D PO SCH (09:25)
[2016-11-19] MEDS: Lasix 40 MG PO SCH (09:25)
[2016-11-19] MEDS: ANTIVERT 25 MG PO SCH (09:25)
[2016-11-19] MEDS: Namenda 5 MG PO SCH (09:25)
[2016-11-19] MEDS: Pepcid 20 MG VIAL IV SCH (09:25)
[2016-11-19] MEDS: NORVASC 5 MG PO SCH (09:25)
[2016-11-19] MEDS: NovoLOG Insulin SQ PRN (12:27)
[2016-11-19 16:23] VITALS: BP 144/77; PULSE 86; O2SAT 97
[2016-11-19] MEDS ORDERED: Levaquin 250MG/50ML D5W 50 ML IV SCH (17:00)
--- NOTE | 2016-11-24 12:09 | DS ---
DISCHARGE DIAGNOSES: 1) SHELTON BITE (FEET). 2) STATUS POST HYPOTHERMIA DUE TO EXPOSURE TO EXTREME COLD, RESOLVED. 3) HISTORY OF CONTUSION OF HEAD, LEFT SHOULDER, BILATERAL KNEES. 4) ABRASION LEFT EXTERNAL EAR. 5) PARASOMNIA. 6) RENAL INSUFFICIENCY. 7) HYPERTENSION/CONGESTIVE HEART FAILURE. 8) DIABETES MELLITUS. 9) OSTEOARTHRITIS. 10) CHRONIC OBSTRUCTIVE PULMONARY DISEASE. 11) SLEEP APNEA. HOSPITAL COURSE: Vernon Lu is an 81 year-old male with past medical history of hypertension, congestive heart failure, diabetes mellitus, osteoarthritis, chronic obstructive pulmonary disease, sleep apnea, prior history of parasomnia. As per history provided by the patient and his son, around 0230 hours on 11/15/2016, the patient left from home and was outside for unknown amount of time in extreme cold. He was lacking adequate clothing. He was initially using walker only for part of the way. He walked to neighbor's door knocking on their doors and eventually a neighbor found him. Also the patient had fallen a few times. The patient did not have a good recollection of events. Upon arrival in the emergency room he was noted to have flushed cold skin with multiple abrasions on extremities and with embedded grass. Also he had complained of painful feet and was noted to have skin discoloration of his feet. His rectal temperature was 95.4F. He was treated with warm blanket, bear hugger. He was treated with IV analgesics, tetanus vaccine. Also during his reported fall he had hurt the left side of his head, skinned his left ear. He was admitted to the medical floor for further monitoring and management. The hypothermia had resolved. Please refer to my H&P for details. Other lab work up during his admission had revealed unremarkable CBC. BMP with creatinine 1.76, hemoglobin A1C 6.4, troponin was essentially unremarkable. UA showed presence of more than 1,000 glucose, rare urobilinogen otherwise negative. Chest x-ray showed no acute changes. Pelvic x-ray showed no acute fractures, dislocation or suspicious bony lesion. X-ray of right knee showed previous total arthroplasty with intact prosthesis. No acute changes. EKG showed paced rhythm (the patient had just undergone pacemaker placement about a week ago). In view of his physical examination findings and history, the patient underwent additional imaging. Facial CT had shown old fracture of right orbit medial wall as well as chronic nonunited fracture of maxillary spine, no acute fracture. CT showed stable nonacute senile brain. Left knee x-ray had shown no acute fracture, dislocation or suspicious bony lesion. Left shoulder x-ray showed no acute fracture, dislocation or suspicious bony lesion. Lumbar spine CT showed negative for acute fracture, multilevel degenerative spondylosis. Pelvic CT showed negative for acute fracture or dislocation, degenerative changes in both sacroiliac joints. He was placed on treatment with broad spectrum IV antibiotics and IV analgesics. Also eventually he was noted to have blistering of his feet. Physical therapy evaluation was requested and the patient was seen by physical therapy on 11/15/2016 evening and underwent drainage of those blisters. Also local dressing was placed per their recommendations. During that night the patient did have agitation and confusion requiring treatment with Ativan/Haldol. Broad spectrum IV antibiotics were continued. Surgery consultation was requested and he was treated conservatively by surgery recommendations. Also the patient was noted to be in atrial fibrillation with heart rate in 80's however was asymptomatic and remained hemodynamically stable. Cardiology consultation was placed on hold at that time due to family request. Also the patient's neurologist, Mo Gates, office was contacted and the patient was placed on Seroquel as per their office recommendations. During his further course he improved clinically. He remained hemodynamically stable. Subsequent labs during his admission had shown normal white blood cell count, stable hemoglobin/hematocrit, improved renal insufficiency. He was treated accordingly. The Eliquis had been placed on hold. After obtaining the head CT it was restarted. The rest of his course was essentially more or less unremarkable. He improved clinically. However, he was continued on nonweight bearing status per surgery recommendations due to blisters on his feet. Also as noted earlier he also underwent dressings and wound care of those area as per surgery/PT recommendations. It was felt that the patient would need extensive treatment for dressings on his feet. This was discussed with family. Given the patient's overall generalized weakness, as well as need for future treatment of his feet, possible placement was planned. During his further course the patient's confusion had resolved. After discussion with all consultants on the case the patient, discussion with patient and family the patient was discharged to [facility] in stable condition on 11/19/2016. Upon discharge he was placed on PRN [place]. He will be continued on p.o. antibiotic for additional 10 days. Additionally, the patient was given prescription for the patient's nightly Klonopin and daytime PRN Ativan as needed were called into his pharmacy. It was advised the patient's labs be repeated in one week. The patient will continue to undergo wound care/dressing change at their facility per surgery/PT recommendations. It was advised that the patient follow up with surgery as scheduled. Also the facility was advised call or contact us immediately if any changes in his clinical condition, mental status or any changes whatsoever including but not limited to changes in his feet are noted. The patient is advised to return to the Emergency Room [facility] if any new signs and symptoms or reappearance of previous signs and symptoms are noted. The patient will continue to follow up with neurology as outpatient. The patient's clinical condition, work-up results and plan of management including plan after discharge as outlined was discussed at length with patient and family. They seem to be in understanding and agreement. Their questions were answered in detail and they declined having any questions/concerns that remain unanswered throughout his visit. Please refer to patient's chart, labs, diagnostic work up results and consult notes for details. Please refer to discharge medication list from 11/19/2016 for details of medications on discharge.
== END 2016-11-19 16:45 | DRG 923 ==
LOC: ED 03:46 → MED SURG 06:29 → OBSVTOIN 17:30 → MED SURG 17:50
PROVIDERS: ADMIT General Practice; ATTEND General Practice
DX: T33.822A Superficial frostbite of left foot, initial encounter (principal); I25.810 Atherosclerosis of coronary artery bypass graft(s) without angina pectoris; T33.821A Superficial frostbite of right foot, initial encounter; T68.XXXA Hypothermia, initial encounter; X31.XXXA Exposure to excessive natural cold, initial encounter; W01.0XXA Fall on same level from slipping, tripping and stumbling without subsequent striking against object, initial encounter; Y93.89 Activity, other specified; Y92.89 Other specified places as the place of occurrence of the external cause; S00.93XA Contusion of unspecified part of head, initial encounter; S40.012A Contusion of left shoulder, initial encounter; S80.02XA Contusion of left knee, initial encounter; S80.01XA Contusion of right knee, initial encounter; S00.412A Abrasion of left ear, initial encounter; S40.212A Abrasion of left shoulder, initial encounter; S80.212A Abrasion, left knee, initial encounter; S80.211A Abrasion, right knee, initial encounter; S90.822A Blister (nonthermal), left foot, initial encounter; I11.0 Hypertensive heart disease with heart failure; I50.9 Heart failure, unspecified; S90.821A Blister (nonthermal), right foot, initial encounter; G47.50 Parasomnia, unspecified; N28.9 Disorder of kidney and ureter, unspecified; E11.9 Type 2 diabetes mellitus without complications; M19.90 Unspecified osteoarthritis, unspecified site; J44.9 Chronic obstructive pulmonary disease, unspecified; G47.30 Sleep apnea, unspecified; R41.0 Disorientation, unspecified; Z95.0 Presence of cardiac pacemaker; Z86.73 Personal history of transient ischemic attack (TIA), and cerebral infarction without residual deficits; Z79.01 Long term (current) use of anticoagulants; Z79.899 Other long term (current) drug therapy
CPT/HCPCS: 36000; 36415; 36600; 51702; 70450; 70486; 71010; 72131; 72170; 72192; 73030; 73560; 80048; 80053; 81000; 81002; 82375; 82550; 82803; 82947; 82962; 83036; 83605; 83735; 83880; 84443; 84484; 85025; 85027; 85610; 85730; 87040; 87086; 90471; 90715; 93005; 93268; 96360; 96361; 96374; 96376; 99285; A6457; J0696; J1630; J1956; J2060; J3010

== ENCOUNTER 2018-04-05 13:05 | Observation (INO) | payer MEDICARE, OTHER ==
[2018-04-05] MEDS ORDERED: Sodium Chloride 0.9% 1000 ML 1,000 ML IV SCH (13:30)
[2018-04-05 14:32] LABS: Hematocrit 38.6 % (42-50); Hemoglobin 13.1 gm/dl (12.5-18.0); Mean Cell Volume 92.1 fl (78-100); Mean Corpuscular Hemoglobin 31.3 pg (26-32); Mean Corpuscular Hgb Concent. 33.9 g/dl (32-36); Mean Platelet Volume 10.9 fl (6-9.5); Platelet Count 183 K/mm3 (150-450); Red Blood Count 4.19 M/mm3 (4.1-5.6); Red Cell Distribution Width 13.6 % (11.5-14.0); White Blood Count 6.3 K/mm3 (4.0-10.5)
[2018-04-05 14:47] LABS: ALBUMIN 4.2 g/dL (3.5-5.0); ANION GAP 14.6 MEQ/L (5-15); BILIRUBIN,TOTAL 0.3 mg/dL (0.2-1.3); Calcium 9.7 mg/dL (8.4-10.2); Creatinine 1 1.4 mg/dL (0.66-1.25); Potassium 4.5 mmol/L (3.5-5.1); Total Protein 7.8 g/dL (6.3-8.2)
--- NOTE | 2018-04-05 14:59 | XRAY ---
Indication: Posterior head laceration following fall 2 days ago. Multiple contiguous axial images obtained through the head without contrast. Comparison: November,. Stable global atrophy and minimal periventricular degenerative micro-ischemia bilaterally. No acute intracranial hemorrhage, abnormal extra-axial fluid collection, or mass effect. Fourth ventricle is midline without hydrocephalus. Bony calvarium intact. Visualized paranasal sinuses and mastoid air cells are clear. Impression: Stable nonacute senile brain. CT DI 50.53
--- NOTE | 2018-04-05 15:07 | XRAY ---
Indication: Status post fall. Heart failure. Comparison: November 15, 2016. Portable chest unchanged again demonstrating extensive bilateral calcified pleural plaquing, CABG surgery, and left-sided dual-lead pacemaker. No focal infiltrate, consolidation, or large effusion. Heart remains borderline prominent. Bony thorax intact again with mild osteopenia and moderate degenerative changes. Impression: Again nonacute chest with chronic features.
[2018-04-05] MEDS: Lasix 20 MG/2 ML IV SCH (16:11)
[2018-04-05] MEDS ORDERED: NORCO 7.5/325 MG TAB PO PRN (16:29)
[2018-04-05] MEDS ORDERED: Dulcolax 10 MG SUPP RC PRN (16:29)
[2018-04-05] MEDS ORDERED: PHENERGAN 25 MG PO PRN (16:29)
[2018-04-05] MEDS ORDERED: MEDICATION INTERVENTION MC SCH ×2 (17:30)
[2018-04-05] MEDS ORDERED: LEVETIRACETAM 500 MG PO SCH (22:00)
[2018-04-05] MEDS ORDERED: NON-FORMULARY ITEM (Glimepiride [Glimepiride] 1 MG) PO SCH (22:00)
[2018-04-05] MEDS ORDERED: PYRIDOXINE HCL PO SCH (22:00)
[2018-04-05] MEDS ORDERED: MELATONIN PO SCH (22:00)
[2018-04-05] MEDS: DESYREL 50 MG PO SCH (23:14)
[2018-04-05] MEDS: Namenda 5 MG PO SCH (23:14)
[2018-04-05] MEDS: KEPPRA 500 MG PO SCH (23:14)
[2018-04-05] MEDS: NORVASC 5 MG PO SCH (23:15)
[2018-04-05] MEDS: Seroquel 100 MG PO SCH (23:15)
[2018-04-05] MEDS: Colace 100 MG PO SCH (23:15)
[2018-04-05] MEDS: Amaryl 2 MG PO SCH (23:15)
[2018-04-05] MEDS: Cyclobenzaprine 10 MG PO SCH (23:15)
[2018-04-05] MEDS: NORCO 5/325 MG PO SCH (23:16)
[2018-04-05] MEDS: Haldol 5 MG PO SCH (23:16)
[2018-04-06] MEDS ORDERED: NON-FORMULARY ITEM (Empagliflozin [Jardiance] 10 MG) PO SCH (10:00)
[2018-04-06] MEDS ORDERED: MEMANTINE HCL 28 MG PO SCH (10:00)
[2018-04-06] MEDS: Lasix 40 MG PO SCH (10:08)
[2018-04-06] MEDS: Lexapro 10 MG PO SCH (10:08)
[2018-04-06] MEDS: SYNTHROID 25 MCG PO SCH (10:08)
[2018-04-06] MEDS: NORCO 5/325 MG PO SCH ×2 (10:08→20:50)
[2018-04-06] MEDS: Seroquel 25 MG PO SCH (10:08)
[2018-04-06] MEDS: Benicar 20 MG PO SCH (10:08)
[2018-04-06] MEDS: ECOTRIN 81 MG PO SCH (10:08)
[2018-04-06] MEDS: KEPPRA 500 MG PO SCH ×2 (10:09→20:50)
[2018-04-06] MEDS: Amaryl 2 MG PO SCH ×2 (10:09→20:49)
[2018-04-06] MEDS: Toprol-Xl 25MG Tablets PO SCH (10:09)
[2018-04-06] MEDS: Namenda 5 MG PO SCH ×2 (10:09→20:50)
[2018-04-06] MEDS: Colace 100 MG PO SCH ×2 (10:09→20:50)
[2018-04-06] MEDS: Lasix 20 MG/2 ML IV SCH (10:11)
[2018-04-06] MEDS: NORVASC 5 MG PO SCH (20:50)
[2018-04-06] MEDS: DESYREL 50 MG PO SCH (20:51)
[2018-04-06] MEDS: Cyclobenzaprine 10 MG PO SCH (20:51)
[2018-04-06] MEDS: Seroquel 100 MG PO SCH (20:51)
[2018-04-06] MEDS: Haldol 5 MG PO SCH (20:51)
[2018-04-07] MEDS: Seroquel 25 MG PO SCH (10:56)
[2018-04-07] MEDS: Toprol-Xl 25MG Tablets PO SCH (10:56)
[2018-04-07] MEDS: KEPPRA 500 MG PO SCH (10:56)
[2018-04-07] MEDS: Lasix 40 MG PO SCH (10:56)
[2018-04-07] MEDS: Colace 100 MG PO SCH (10:56)
[2018-04-07] MEDS: Lexapro 10 MG PO SCH (10:56)
[2018-04-07] MEDS: NORCO 5/325 MG PO SCH (10:57)
[2018-04-07] MEDS: Amaryl 2 MG PO SCH (10:57)
[2018-04-07] MEDS: Namenda 5 MG PO SCH (10:57)
[2018-04-07] MEDS: Benicar 20 MG PO SCH (10:58)
[2018-04-07] MEDS: ECOTRIN 81 MG PO SCH (10:58)
[2018-04-07] MEDS: SYNTHROID 25 MCG PO SCH (10:58)
[2018-04-07] MEDS: Lasix 20 MG/2 ML IV SCH (10:58)
--- NOTE | 2018-04-07 12:03 | PCM.HP ---
History of Present Illness - Chief Complaint Chief Complaint: shortness of breath and confusion Date: 04/05/18 History of Present Illness: is a 82 year old male.started having worsening confusion and shortness of breath for 3-4 days, Patient has been confused off and on for long time due to his chronic dementia - Review of Systems Constitutional: No Fever, No Chills Eyes: No Symptoms Ears, Nose, & Throat: No Symptoms Respiratory: No Cough, No Short Of Breath Cardiac: No Chest Pain, No Edema, No Syncope Abdominal/Gastrointestinal: No Abdominal Pain, No Nausea, No Vomiting, No Diarrhea Genitourinary Symptoms: No Dysuria Musculoskeletal: No Back Pain, No Neck Pain Skin: No Rash Neurological: No Dizziness, No Focal Weakness, No Sensory Changes Psychological: No Symptoms Endocrine: No Symptoms Hematologic/Lymphatic: No Symptoms Immunological/Allergic: No Symptoms Medications & Allergies Home Medications: Home Medication List Amlodipine Besylate 5 mg [Norvasc 5 mg] 5 mg PO HS 04/05/18 [History Confirmed 04/05/18] Aspirin EC 81 mg [Ecotrin 81 mg] 81 mg PO DAILY 04/05/18 [History Confirmed 04/05/18] Bisacodyl 10 mg [Dulcolax 10 MG SUPP] 10 mg RC DAILY PRN PRN 04/05/18 [ History Confirmed 04/05/18] Cyclobenzaprine HCl 10 mg [Cyclobenzaprine 10 MG] 10 mg PO HS 04/05/18 [ History Confirmed 04/05/18] Docusate Sodium 100 mg [Colace 100 MG] 100 mg PO BID 04/05/18 [History Confirmed 04/05/18] Empagliflozin [Jardiance] 10 mg PO DAILY 04/05/18 [History Confirmed 04/05/18] Escitalopram Oxalate 20 mg PO DAILY 04/05/18 [History Confirmed 04/05/18] Furosemide 40 mg [Lasix 40 MG] 40 mg PO DAILY 04/05/18 [History Confirmed 04/05/18] Glimepiride 1 mg PO BID 04/05/18 [History Confirmed 04/05/18] Haloperidol [Haloperidol] 5 mg PO HS 04/05/18 [History Confirmed 04/05/18] Hydrocodone/Acetaminophen [[place]ett 5-325 Tablet] 1 each PO BID 04/05/18 [History Confirmed 04/05/18] Hydrocodone/Acetaminophen [[place] 7.5-325 Tablet] 1 each PO Q6HPRN PRN 04/05/18 [ History Confirmed 04/05/18] Levetiracetam [Keppra Xr] 500 mg PO BID 04/05/18 [History Confirmed 04/05/18] Levothyroxine Sodium 25 mg PO DAILY 04/05/18 [History Confirmed 04/05/18] Melatonin/Pyridoxine HCl (B6) [Melatonin 10 mg Tablet] 1 each PO HS 04/05/18 [ History Confirmed 04/05/18] Memantine HCl [Namenda Xr] 28 mg PO DAILY 04/05/18 [History Confirmed 04/05/18] Metoprolol Succinate 25 mg Xl* [Toprol-Xl 25MG Tablets] 12.5 mg PO DAILY [History Confirmed 04/05/18] Nut.tx.gluc.intoler,Lac-Fr,Soy [Glucerna] 237 ml PO TID 04/05/18 [History Confirmed 04/05/18] Olmesartan Medoxomil 20 mg [Benicar 20 MG] 20 mg PO DAILY 04/05/18 [ History Confirmed 04/05/18] Promethazine HCl 25 mg [Phenergan 25 mg] 12.5 mg PO QIDPRN PRN 04/05/18 [ History Confirmed 04/05/18] Quetiapine Fumarate 25 mg [Seroquel 25 MG] 25 mg PO DAILY 04/05/18 [ History Confirmed 04/05/18] Quetiapine Fumarate [Seroquel] 100 mg PO HS 04/05/18 [History Confirmed 04/05/18 ] Trazodone HCl 50 mg [Desyrel 50 mg] 50 mg PO HS 04/05/18 [History Confirmed 04/05/18] Allergies/Adverse Reactions: Allergies Allergy/AdvReac Type Severity Reaction Status Date / Time morphine Allergy Verified 06/11/16 12:42 lorazepam [From Ativan] AdvReac Verified 04/05/18 15:47 - Past Medical History Past Medical History: Yes Neurological History: Other ENT History: Cataracts, Other Cardiac History: Coronary Artery Disease Respiratory History: COPD, Other Endocrine Medical History: Diabetes Type II, Other Musculoskelatal History: Arthritis GI Medical History: Hernia History: Other Pyscho-Social History: Anxiety Male Reproductive Disorders: Prostate Cancer Comment: PARASOMNIA. PACEMAKER - STENTS. OPEN HEART SURGERY. BILATERAL TKR. RENAL DISEASE - Past Surgical History Past Surgical History: Yes Neuro Surgical History: No Pertinent History Cardiac History: CABG, Cardiac Catheterization, Cardiac Stent, Pacemaker Respiratory Surgery: No Pertinent History GI Surgical History: Cholecystectomy Genitourinary Surgical Hx: No Pertinent History Musculskeletal Surgical Hx: Joint Replacement Male Surgical History: No Pertinent History Other Surgical History: bilat. knee replacement - Social History Smoking Status: Former smoker How long have you smoked: 41 Exposure to second hand smoke: No Alcohol: None Drug Use: none - Physical Exam Vital Signs: Vital Signs - 24 hr Temp Pulse Resp BP Pulse Ox 04/07/18 07:21 98.2 F 73 16 147/78 97 04/07/18 04:20 98.1 F 75 20 126/50 95 04/06/18 23:58 98.1 F 86 18 161/73 96 04/06/18 20:00 98.0 F 88 20 184/88 97 04/06/18 16:00 98.0 F 60 18 173/72 96 General Appearance: no apparent distress, alert Neurologic Exam: alert, oriented x 3, cooperative, normal mood/affect, nml cerebellar function, nml station & gait, sensation nml, No motor deficits Eye Exam: PERRL/EOMI, eyes nml inspection Ears, Nose, Throat Exam: normal ENT inspection, TMs normal, pharynx normal, moist mucous membranes Neck Exam: normal inspection, non-tender, supple, full range of motion Respiratory Exam: normal breath sounds, lungs clear, No respiratory distress Cardiovascular Exam: regular rate/rhythm, normal heart sounds, normal peripheral pulses Gastrointestinal/Abdomen Exam: soft, normal bowel sounds, No tenderness, No mass Back Exam: normal inspection, normal range of motion, No CVA tenderness, No vertebral tenderness Extremity Exam: normal inspection, normal range of motion, pelvis stable Skin Exam: normal color, warm, dry, No rash Lymphatic Exam: No adenopathy Results - Labs Lab/Micro Results: Accuchecks Date 04/06/18 Time 22:00 Accucheck Value: 196 Accucheck Value: 230 Accucheck Value: 206 Accuchecks Date 04/06/18 Time 22:00 Accucheck Value: 196 Accucheck Value: 230 Accucheck Value: 206 - Radiology Impressions Radiology Exams & Impressions: Radiology Procedures Category Date Time Status CHEST 1 VIEW (PORTABLE) Urgent Exams 04/05/18 13:16 Completed HEAD WITHOUT CONTRAST [CT] Urgent Exams 04/05/18 13:15 Completed Assessment/Plan (1) Altered mental status Current Visit: Yes Status: Acute Qualifiers: Altered mental status type: disorientation Qualified Code(s): R41.0 - Disorientation, unspecified Code(s): R41.82 - ALTERED MENTAL STATUS, UNSPECIFIED (2) CHF (congestive heart failure), NYHA class IV Current Visit: Yes Status: Acute Qualifiers: Congestive heart failure type: combined Congestive heart failure chronicity : chronic Qualified Code(s): I50.42 - Chronic combined systolic (congestive) and diastolic (congestive) heart failure Code(s): I50.9 - HEART FAILURE, UNSPECIFIED (3) Dementia associated with other underlying disease with behavioral disturbance Current Visit: Yes Status: Acute Assessment & Plan: Pt is using the following medications for dementia: haloperidol, memantine, quetiapine, trazodone Code(s): F02.81 - DEMENTIA IN OTH DISEASES CLASSD PAUL W BEHAVIORAL DISTURB
--- NOTE | 2018-04-07 12:05 | PCM.NOTE ---
Date and Time: 04/06/18 1203, Late entry - Review of Systems Constitutional: No Fever, No Chills Eyes: No Symptoms Ears, Nose, & Throat: No Symptoms Respiratory: No Cough, No Short Of Breath Cardiac: No Chest Pain, No Edema, No Syncope Abdominal/Gastrointestinal: No Abdominal Pain, No Nausea, No Vomiting, No Diarrhea Genitourinary Symptoms: No Dysuria Musculoskeletal: No Back Pain, No Neck Pain Skin: No Rash Neurological: Gait Changes, Irritability, Lethargy, Speech Changes, No Dizziness , No Focal Weakness, No Sensory Changes Psychological: No Symptoms Endocrine: No Symptoms Hematologic/Lymphatic: No Symptoms Immunological/Allergic: No Symptoms Objective Exam General Appearance: mild distress, alert Neurologic Exam: alert, oriented x 3, cooperative, disoriented, confusion, slurred speech, No motor deficits Skin Exam: normal color, warm, dry Eye Exam: PERRL, EOMI, eyes nml inspection Ears, Nose, Throat Exam: normal ENT inspection, pharynx normal, moist mucous membranes Neck Exam: normal inspection, non-tender, supple, full range of motion Respiratory Exam: normal breath sounds, lungs clear, No respiratory distress Cardiovascular Exam: regular rate/rhythm, normal heart sounds Gastrointestinal/Abdomen Exam: soft, No tenderness, No mass Extremity Exam: normal inspection, normal range of motion Back Exam: normal inspection, normal range of motion, No CVA tenderness, No vertebral tenderness Male Genitalia Exam: deferred Rectal Exam: deferred OBJECTIVE DATA Vital Signs: Vital Signs - 24 hr Temp Pulse Resp BP Pulse Ox 04/07/18 07:21 98.2 F 73 16 147/78 97 04/07/18 04:20 98.1 F 75 20 126/50 95 04/06/18 23:58 98.1 F 86 18 161/73 96 04/06/18 20:00 98.0 F 88 20 184/88 97 04/06/18 16:00 98.0 F 60 18 173/72 96 Pain Assessment - Last Documented Pain Intensity 0 Pain Scale Used 0-10 Pain Scale Intake and Output: Intake & Output 04/05/18 04/06/18 04/07/18 04/08/18 11:59 11:59 11:59 11:59 Intake Total 760 600 Output Total 175 Balance 760 425 Weight 89 kg Lab Results: Accuchecks Date 04/06/18 Time 22:00 Accucheck Value: 196 Accucheck Value: 230 Accucheck Value: 206 Radiology Exams: Radiology Procedures Category Date Time Status CHEST 1 VIEW (PORTABLE) Urgent Exams 04/05/18 13:16 Completed HEAD WITHOUT CONTRAST [CT] Urgent Exams 04/05/18 13:15 Completed Assessment/Plan (1) Altered mental status Current Visit: Yes Status: Acute Qualifiers: Altered mental status type: disorientation Qualified Code(s): R41.0 - Disorientation, unspecified Code(s): R41.82 - ALTERED MENTAL STATUS, UNSPECIFIED (2) CHF (congestive heart failure), NYHA class IV Current Visit: Yes Status: Acute Qualifiers: Congestive heart failure type: combined Congestive heart failure chronicity : chronic Qualified Code(s): I50.42 - Chronic combined systolic (congestive) and diastolic (congestive) heart failure Code(s): I50.9 - HEART FAILURE, UNSPECIFIED (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
--- NOTE | 2018-04-07 12:17 | PCM.DS ---
Discharge Summary Date of Admission: 04/05/18 13:05 Admitting Physician: CATRACHO LOYOLA Primary Care Provider: CATRACHO LOYOLA Allergies Allergies morphine Allergy (Verified 06/11/16 12:42) lorazepam [From Ativan] Adverse Reaction (Verified 04/05/18 15:47) Hospital Summary - Hospital Course Hospital Course: Chief Complaint Diagnosis shortness of breath and confusion Admission Date Date 04/05/18 Allergies Allergy/AdvReac Type Severity Reaction Status Date / Time morphine Allergy Verified 06/11/16 12:42 lorazepam [From Ativan] AdvReac Verified 04/05/18 15:47 Vital Signs (Last 24 hours) Temp Pulse Resp BP Pulse Ox 04/07/18 07:21 98.2 F 73 16 147/78 97 04/07/18 04:20 98.1 F 75 20 126/50 95 04/06/18 23:58 98.1 F 86 18 161/73 96 04/06/18 20:00 98.0 F 88 20 184/88 97 04/06/18 16:00 98.0 F 60 18 173/72 96 Home Medications Medication Instructions Recorded Confirmed Last Taken Type Amlodipine Besylate 5 mg 5 mg PO HS 04/05/18 04/05/18 04/04/18 History [Norvasc 5 mg] Aspirin EC 81 mg [Ecotrin 81 81 mg PO DAILY 04/05/18 04/05/18 04/05/18 History mg] Bisacodyl 10 mg [Dulcolax 10 MG 10 mg RC DAILY PRN PRN 04/05/18 04/05/18 Unknown History SUPP] Cyclobenzaprine HCl 10 mg 10 mg PO HS 04/05/18 04/05/18 04/04/18 History [Cyclobenzaprine 10 MG] Docusate Sodium 100 mg [Colace 100 mg PO BID 04/05/18 04/05/18 04/05/18 History 100 MG] Empagliflozin [Jardiance] 10 mg PO DAILY 04/05/18 04/05/18 04/05/18 History Escitalopram Oxalate 20 mg PO DAILY 04/05/18 04/05/18 04/05/18 History Furosemide 40 mg [Lasix 40 40 mg PO DAILY 04/05/18 04/05/18 04/05/18 History MG] Glimepiride 1 mg PO BID 04/05/18 04/05/18 04/05/18 History Haloperidol [Haloperidol] 5 mg PO HS 04/05/18 04/05/18 04/04/18 History Hydrocodone/Acetaminophen [Rac[place] 1 each PO BID 04/05/18 04/05/18 04/05/18 History 5-325 Tablet] Hydrocodone/Acetaminophen [[place] 1 each PO Q6HPRN PRN 04/05/18 04/05/18 Unknown History 7.5-325 Tablet] Levetiracetam [Keppra Xr] 500 mg PO BID 04/05/18 04/05/18 04/05/18 History Levothyroxine Sodium 25 mg PO DAILY 04/05/18 04/05/18 04/05/18 History Melatonin/Pyridoxine HCl (B6) 1 each PO HS 04/05/18 04/05/18 04/04/18 History [Melatonin 10 mg Tablet] Memantine HCl [Namenda Xr] 28 mg PO DAILY 04/05/18 04/05/18 04/05/18 History Metoprolol Succinate 25 mg Xl* 12.5 mg PO DAILY 04/05/18 04/05/18 04/05/18 History [Toprol-Xl 25MG Tablets] Nut.tx.gluc.intoler,Lac-Fr,Soy 237 ml PO TID 04/05/18 04/05/18 04/05/18 History [Glucerna] Olmesartan Medoxomil 20 mg 20 mg PO DAILY 04/05/18 04/05/18 04/05/18 History [Benicar 20 MG] Promethazine HCl 25 mg 12.5 mg PO QIDPRN PRN 04/05/18 04/05/18 Unknown History [Phenergan 25 mg] Quetiapine Fumarate 25 mg 25 mg PO DAILY 04/05/18 04/05/18 04/05/18 History [Seroquel 25 MG] Quetiapine Fumarate [Seroquel] 100 mg PO HS 04/05/18 04/05/18 04/04/18 History Trazodone HCl 50 mg [Desyrel 50 50 mg PO HS 04/05/18 04/05/18 04/04/18 History mg] Current Medications Generic Name Dose Route Start Last Admin Trade Name Freq PRN Reason Stop Dose Admin Hydrocodone Bitart/Acetaminophen 1 tab 04/05/18 16:29 [place] 7.5/325 Mg Tab PO 04/10/18 16:28 Q6HPRN PRN PAIN Hydrocodone Bitart/Acetaminophen 1 tab 04/05/18 22:00 04/07/18 10:57 [place] 5/325 Mg PO 04/10/18 21:59 1 tab BID HILARY Administration Amlodipine Besylate 5 mg 04/05/18 22:00 04/06/18 20:50 Norvasc 5 Mg PO 05/05/18 21:59 5 mg HS HILARY Administration Aspirin 81 mg 04/06/18 10:00 04/07/18 10:58 Ecotrin 81 Mg PO 05/06/18 09:59 81 mg DAILY HILARY Administration Bisacodyl 10 mg 04/05/18 16:29 Dulcolax 10 Mg Supp RC 05/05/18 16:28 DAILY PRN PRN CONSTIPATION Cyclobenzaprine HCl 10 mg 04/05/18 22:00 04/06/18 20:51 Cyclobenzaprine 10 Mg PO 05/05/18 21:59 10 mg HS HILARY Administration Docusate Sodium 100 mg 04/05/18 22:00 04/07/18 10:56 Colace 100 Mg PO 05/05/18 21:59 100 mg BID HILARY Administration Escitalopram Oxalate 20 mg 04/06/18 10:00 04/07/18 10:56 Lexapro 10 Mg PO 05/06/18 09:59 20 mg DAILY HILARY Administration Furosemide 20 mg 04/05/18 14:00 04/07/18 10:58 Lasix 20 Mg/2 Ml IV 05/05/18 13:59 Not Given DAILY HILARY Furosemide 40 mg 04/06/18 10:00 04/07/18 10:56 Lasix 40 Mg PO 05/06/18 09:59 40 mg DAILY HILARY Administration Glimepiride 1 mg 04/05/18 22:00 04/07/18 10:57 Amaryl 2 Mg PO 05/05/18 21:59 1 mg BID HILARY Administration Haloperidol 5 mg 04/05/18 22:00 04/06/18 20:51 Haldol 5 Mg PO 05/05/18 21:59 5 mg HS HILARY Administration Sodium Chloride 1,000 mls @ 40 mls/hr 04/05/18 13:30 04/05/18 14:47 Sodium Chloride 0.9% 1000 Ml IV 05/05/18 13:29 40 mls/hr .Q24H HILARY Administration Levetiracetam 500 mg 04/05/18 22:00 04/07/18 10:56 Keppra 500 Mg PO 05/05/18 21:59 500 mg BID HILARY Administration Levothyroxine Sodium 25 mcg 04/06/18 10:00 04/07/18 10:58 Synthroid 25 Mcg PO 05/06/18 09:59 25 mcg DAILY HILARY Administration Memantine 10 mg 04/05/18 22:00 04/07/18 10:57 Namenda 5 Mg PO 05/05/18 21:59 10 mg BID HILARY Administration Metoprolol Succinate 12.5 mg 04/06/18 10:00 04/07/18 10:56 Toprol-Xl 25mg Tablets PO 05/06/18 09:59 12.5 mg DAILY HILARY Administration Miscellaneous Information 0 each 04/05/18 17:30 Medication Intervention 05/05/18 17:29 .RN TO CHECK WITH PA [facility] Miscellaneous Information 0 each 04/05/18 17:30 Medication Intervention 05/05/18 17:29 .RN TO CHECK WITH PA [facility] Olmesartan 20 mg 04/06/18 10:00 04/07/18 10:58 Benicar 20 Mg PO 05/06/18 09:59 20 mg DAILY HILARY Administration Promethazine HCl 12.5 mg 04/05/18 16:29 Phenergan 25 Mg PO 05/05/18 16:28 QIDPRN PRN n/v Quetiapine Fumarate 100 mg 04/05/18 22:00 04/06/18 20:51 Seroquel 100 Mg PO 05/05/18 21:59 100 mg HS HILARY Administration Quetiapine Fumarate 25 mg 04/06/18 10:00 04/07/18 10:56 Seroquel 25 Mg PO 05/06/18 09:59 25 mg DAILY HILARY Administration Trazodone HCl 50 mg 04/05/18 22:00 04/06/18 20:51 Desyrel 50 Mg PO 05/05/18 21:59 50 mg HS HILARY Administration Intake & Output (Last 24 hours) 04/05/18 04/06/18 04/07/18 04/08/18 11:59 11:59 11:59 11:59 Intake Total 760 600 Output Total 175 Balance 760 425 Weight 89 kg Orders (Last 24 hours) Category Date Time Status HEMOGLOBIN A1C Urgent Lab 04/07/18 10:45 Ordered - Vitals & Intake/Output Vital Signs: Vital Signs Temperature 98.2 F 04/07/18 07:21 Pulse Rate 73 04/07/18 07:21 Respiratory Rate 16 04/07/18 07:21 Blood Pressure 147/78 04/07/18 07:21 O2 Sat by Pulse Oximetry 97 04/07/18 07:21 Intake & Output: Intake & Output 04/05/18 04/06/18 04/07/18 04/08/18 11:59 11:59 11:59 11:59 Intake Total 760 600 Output Total 175 Balance 760 425 Weight 89 kg - Lab Result Diagrams: 04/05/18 14:22 04/05/18 14:22 Lab Results-Last 24 Hrs: Accuchecks Date 04/06/18 Time 22:00 Accucheck Value: 196 Accucheck Value: 230 Accucheck Value: 206 Micro Results-Entire Visit: Accuchecks Date 04/06/18 Time 22:00 Accucheck Value: 196 Accucheck Value: 230 Accucheck Value: 206 - Radiology Exams Ordered Rad Exams-Entire Visit: Radiology Procedures Category Date Time Status CHEST 1 VIEW (PORTABLE) Urgent Exams 04/05/18 13:16 Completed HEAD WITHOUT CONTRAST [CT] Urgent Exams 04/05/18 13:15 Completed - Procedures and Test Procedures and Tests throughout Hospitalization: Therapy Orders & Screens 04/05/18 16:04 OT Screen per Nursing Assess Comment: Protocol Order Physician Instructions: Greater than 3 points order OT Admission Screening Reason For Exam: Triggered on Admission Diagnosis: CHF Open Wound/Cellutlitis/Pressure Ulcers: No Acute Fx/ORIF/Change in wt bearing status: No Severe MUSCULOSKELETAL pain: No ADL Dysfunction: Yes Acute CVA w/Hemiparesis/Hemiplegia: No Decreased Functional Mobility/Strength: Yes Sprain/Strain: No Acute Post-op Mobility Dysfunction: No Total Points: 4 PT Screen per Nursing Assess Comment: Protocol Order Physician Instructions: Greater than 3 points order PT Admission Screenin Reason For Exam: Triggered on Admission Diagnosis: CHF Open Wound/Cellutlitis/Pressure Ulcers: No Acute Fx/ORIF/Change in wt bearing status: No Severe MUSCULOSKELETAL pain: No ADL Dysfunction: Yes Acute CVA w/Hemiparesis/Hemiplegia: No Decreased Functional Mobility/Strength: Yes Sprain/Strain: No Acute Post-op Mobility Dysfunction: No Total Points: 4 Discharge Exam General Appearance: no apparent distress, alert Neurologic Exam: alert, oriented x 3, cooperative, normal mood/affect, nml cerebellar function, sensation nml, No motor deficits Skin Exam: normal color, warm, dry Eye Exam: PERRL, EOMI, eyes nml inspection Ears, Nose, Throat Exam: normal ENT inspection, pharynx normal, moist mucous membranes Neck Exam: normal inspection, non-tender, supple, full range of motion Respiratory Exam: normal breath sounds, lungs clear, No respiratory distress Cardiovascular Exam: regular rate/rhythm, normal heart sounds Gastrointestinal/Abdomen Exam: soft, No tenderness, No mass Extremity Exam: normal inspection, normal range of motion Back Exam: normal inspection, normal range of motion, No CVA tenderness, No vertebral tenderness Male Genitalia Exam: deferred Rectal Exam: deferred Final Diagnosis/Problem List - Final Discharge Diagnosis/Problem (1) Dementia associated with other underlying disease with behavioral disturbance Current Visit: Yes Status: Chronic Assessment & Plan: Chief Complaint Diagnosis shortness of breath and confusion Admission Date Date 04/05/18 Allergies Allergy/AdvReac Type Severity Reaction Status Date / Time morphine Allergy Verified 06/11/16 12:42 lorazepam [From Ativan] AdvReac Verified 04/05/18 15:47 Vital Signs (Last 24 hours) Temp Pulse Resp BP Pulse Ox 04/07/18 07:21 98.2 F 73 16 147/78 97 04/07/18 04:20 98.1 F 75 20 126/50 95 04/06/18 23:58 98.1 F 86 18 161/73 96 04/06/18 20:00 98.0 F 88 20 184/88 97 04/06/18 16:00 98.0 F 60 18 173/72 96 Home Medications Medication Instructions Recorded Confirmed Last Taken Type Amlodipine Besylate 5 mg 5 mg PO HS 04/05/18 04/05/18 04/04/18 History [Norvasc 5 mg] Aspirin EC 81 mg [Ecotrin 81 81 mg PO DAILY 04/05/18 04/05/18 04/05/18 History mg] Bisacodyl 10 mg [Dulcolax 10 MG 10 mg RC DAILY PRN PRN 04/05/18 04/05/18 Unknown History SUPP] Cyclobenzaprine HCl 10 mg 10 mg PO HS 04/05/18 04/05/18 04/04/18 History [Cyclobenzaprine 10 MG] Docusate Sodium 100 mg [Colace 100 mg PO BID 04/05/18 04/05/18 04/05/18 History 100 MG] Empagliflozin [Jardiance] 10 mg PO DAILY 04/05/18 04/05/18 04/05/18 History Escitalopram Oxalate 20 mg PO DAILY 04/05/18 04/05/18 04/05/18 History Furosemide 40 mg [Lasix 40 40 mg PO DAILY 04/05/18 04/05/18 04/05/18 History MG] Glimepiride 1 mg PO BID 04/05/18 04/05/18 04/05/18 History Haloperidol [Haloperidol] 5 mg PO HS 04/05/18 04/05/18 04/04/18 History Hydrocodone/Acetaminophen [Racine 1 each PO BID 04/05/18 04/05/18 04/05/18 History 5-325 Tablet] Hydrocodone/Acetaminophen [[place] 1 each PO Q6HPRN PRN 04/05/18 04/05/18 Unknown History 7.5-325 Tablet] Levetiracetam [Keppra Xr] 500 mg PO BID 04/05/18 04/05/18 04/05/18 History Levothyroxine Sodium 25 mg PO DAILY 04/05/18 04/05/1818 History Melatonin/Pyridoxine HCl (B6) 1 each PO HS 04/05/18 04/05/18 04/04/18 History [Melatonin 10 mg Tablet] Memantine HCl [Namenda Xr] 28 mg PO DAILY 04/05/18 04/05/18 04/05/18 History Metoprolol Succinate 25 mg Xl* 12.5 mg PO DAILY 04/05/18 04/05/18 04/05/18 History [Toprol-Xl 25MG Tablets] Nut.tx.gluc.intoler,Lac-Fr,Soy 237 ml PO TID 04/05/18 04/05/18 04/05/18 History [Glucerna] Olmesartan Medoxomil 20 mg 20 mg PO DAILY 04/05/18 04/05/18 04/05/18 History [Benicar 20 MG] Promethazine HCl 25 mg 12.5 mg PO QIDPRN PRN 04/05/18 04/05/18 Unknown History [Phenergan 25 mg] Quetiapine Fumarate 25 mg 25 mg PO DAILY 04/05/18 04/05/18 04/05/18 History [Seroquel 25 MG] Quetiapine Fumarate [Seroquel] 100 mg PO HS 04/05/18 04/05/18 04/04/18 History Trazodone HCl 50 mg [Desyrel 50 50 mg PO HS 04/05/18 04/05/18 04/04/18 History mg] Current Medications Generic Name Dose Route Start Last Admin Trade Name Freq PRN Reason Stop Dose Admin Hydrocodone Bitart/Acetaminophen 1 tab 04/05/18 16:29 [place] 7.5/325 Mg Tab PO 04/10/18 16:28 Q6HPRN PRN PAIN Hydrocodone Bitart/Acetaminophen 1 tab 04/05/18 22:00 04/07/18 10:57 [place] 5/325 Mg PO 04/10/18 21:59 1 tab BID HILARY Administration Amlodipine Besylate 5 mg 04/05/18 22:00 04/06/18 20:50 Norvasc 5 Mg PO 05/05/18 21:59 5 mg HS HILARY Administration Aspirin 81 mg 05/30/18 10:00 04/07/18 10:58 Ecotrin 81 Mg PO 05/06/18 09:59 81 mg DAILY HILARY Administration Bisacodyl 10 mg 04/05/18 16:29 Dulcolax 10 Mg Supp RC 05/05/18 16:28 DAILY PRN PRN CONSTIPATION Cyclobenzaprine HCl 10 mg 04/05/18 22:00 04/06/18 20:51 Cyclobenzaprine 10 Mg PO 05/05/18 21:59 10 mg HS HILARY Administration Docusate Sodium 100 mg 04/05/18 22:00 04/07/18 10:56 Colace 100 Mg PO 05/05/18 21:59 100 mg BID HILARY Administration Escitalopram Oxalate 20 mg 04/06/18 10:00 04/07/18 10:56 Lexapro 10 Mg PO 05/06/18 09:59 20 mg DAILY HILARY Administration Furosemide 20 mg 04/05/18 14:00 04/07/18 10:58 Lasix 20 Mg/2 Ml IV 05/05/18 13:59 Not Given DAILY HILARY Furosemide 40 mg 04/06/18 10:00 04/07/18 10:56 Lasix 40 Mg PO 05/06/18 09:59 40 mg DAILY HILARY Administration Glimepiride 1 mg 04/05/18 22:00 04/07/18 10:57 Amaryl 2 Mg PO 05/05/18 21:59 1 mg BID HILARY Administration Haloperidol 5 mg 04/05/18 22:00 04/06/18 20:51 Haldol 5 Mg PO 05/05/18 21:59 5 mg HS HILARY Administration Sodium Chloride 1,000 mls @ 40 mls/hr 04/05/18 13:30 04/05/18 14:47 Sodium Chloride 0.9% 1000 Ml IV 05/05/18 13:29 40 mls/hr .Q24H HILARY Administration Levetiracetam 500 mg 04/05/18 22:00 04/07/18 10:56 Keppra 500 Mg PO 05/05/18 21:59 500 mg BID HILARY Administration Levothyroxine Sodium 25 mcg 04/06/18 10:00 04/07/18 10:58 Synthroid 25 Mcg PO 05/06/18 09:59 25 mcg DAILY HILARY Administration Memantine 10 mg 04/05/18 22:00 04/07/18 10:57 Namenda 5 Mg PO 05/05/18 21:59 10 mg BID HILARY Administration Metoprolol Succinate 12.5 mg 04/06/18 10:00 04/07/18 10:56 Toprol-Xl 25mg Tablets PO 05/06/18 09:59 12.5 mg DAILY HILARY Administration Miscellaneous Information 0 each 04/05/18 17:30 Medication Intervention 05/05/18 17:29 .RN TO CHECK WITH PA [facility] Miscellaneous Information 0 each 04/05/18 17:30 Medication Intervention 05/05/18 17:29 .RN TO CHECK WITH PA [facility] Olmesartan 20 mg 04/06/18 10:00 04/07/18 10:58 Benicar 20 Mg PO 05/06/18 09:59 20 mg DAILY HILARY Administration Promethazine HCl 12.5 mg 04/05/18 16:29 Phenergan 25 Mg PO 05/05/18 16:28 QIDPRN PRN n/v Quetiapine Fumarate 100 mg 04/05/18 22:00 04/06/18 20:51 Seroquel 100 Mg PO 05/05/18 21:59 100 mg HS HILARY Administration Quetiapine Fumarate 25 mg 04/06/18 10:00 04/07/18 10:56 Seroquel 25 Mg PO 05/06/18 09:59 25 mg DAILY HILARY Administration Trazodone HCl 50 mg 04/05/18 22:00 04/06/18 20:51 Desyrel 50 Mg PO 05/05/18 21:59 50 mg HS HILARY Administration Intake & Output (Last 24 hours) 04/05/18 04/06/18 04/07/18 04/08/18 11:59 11:59 11:59 11:59 Intake Total 760 600 Output Total 175 Balance 760 425 Weight 89 kg Orders (Last 24 hours) Category Date Time Status HEMOGLOBIN A1C Urgent Lab 04/07/18 10:45 Ordered (2) Altered mental status Current Visit: Yes Status: Resolved (3) CHF (congestive heart failure), NYHA class IV Current Visit: Yes Status: Chronic - Discharge Discharge Date: 04/07/18 ([facility]) Disposition: XFER OTHER Condition: Stable Prescriptions: No Action Bisacodyl 10 mg [Dulcolax 10 MG SUPP] 10 mg RC DAILY PRN PRN PRN Reason: Constipation Empagliflozin [Jardiance] 10 mg PO DAILY Cyclobenzaprine HCl 10 mg [Cyclobenzaprine 10 MG] 10 mg PO HS Glimepiride 1 mg PO BID Escitalopram Oxalate 20 mg PO DAILY Haloperidol [Haloperidol] 5 mg PO HS Hydrocodone/Acetaminophen [[place] 7.5-325 Tablet] 1 each PO Q6HPRN PRN PRN Reason: Pain Hydrocodone/Acetaminophen [[place] 5-325 Tablet] 1 each PO BID Levetiracetam [Keppra Xr] 500 mg PO BID Melatonin/Pyridoxine HCl (B6) [Melatonin 10 mg Tablet] 1 each PO HS Levothyroxine Sodium 25 mg PO DAILY Memantine HCl [Namenda Xr] 28 mg PO DAILY Promethazine HCl 25 mg [Phenergan 25 mg] 12.5 mg PO QIDPRN PRN PRN Reason: n/v Metoprolol Succinate 25 mg Xl* [Toprol-Xl 25MG Tablets] 12.5 mg PO DAILY Quetiapine Fumarate 25 mg [Seroquel 25 MG] 25 mg PO DAILY Trazodone HCl 50 mg [Desyrel 50 mg] 50 mg PO HS Quetiapine Fumarate [Seroquel] 100 mg PO HS Amlodipine Besylate 5 mg [Norvasc 5 mg] 5 mg PO HS Olmesartan Medoxomil 20 mg [Benicar 20 MG] 20 mg PO DAILY Aspirin EC 81 mg [Ecotrin 81 mg] 81 mg PO DAILY Docusate Sodium 100 mg [Colace 100 MG] 100 mg PO BID Furosemide 40 mg [Lasix 40 MG] 40 mg PO DAILY Nut.tx.gluc.intoler,Lac-Fr,Soy [Glucerna] 237 ml PO TID Follow up with: CATRACHO LOYOLA MD [Primary Care Provider] - 1 Week
[2018-04-07 12:57] VITALS: BP 185/82; PULSE 76; O2SAT 94
== END 2018-04-07 15:40 ==
LOC: INTOOBSV 13:05 → MED SURG 13:05
PROVIDERS: ADMIT General Practice; ATTEND General Practice
DX: F02.81 Dementia in other diseases classified elsewhere, unspecified severity, with behavioral disturbance (principal); I50.42 Chronic combined systolic (congestive) and diastolic (congestive) heart failure; I50.84 End stage heart failure; R41.82 Altered mental status, unspecified; R41.0 Disorientation, unspecified; I25.10 Atherosclerotic heart disease of native coronary artery without angina pectoris; E11.9 Type 2 diabetes mellitus without complications; M19.90 Unspecified osteoarthritis, unspecified site; Z79.899 Other long term (current) drug therapy; Z85.46 Personal history of malignant neoplasm of prostate; Z95.0 Presence of cardiac pacemaker; Z72.0 Tobacco use
CPT/HCPCS: 36415; 70450; 71045; 80053; 83036; 83880; 85027; G0378; J1940; A9270-GY